=== PATIENT | female | born 1980 | race Two or more races ===

== ENCOUNTER 2024-03-03 08:28 | Day surgery (SDC) | payer BC ==
[2024-02-29 14:57] LABS: BASOPHILS % (AUTO) 0.7 % (0-1); EOSINOPHILS % (AUTO) 0.5 % (0-6); HEMATOCRIT 35.7 % (35.0-45.0); HEMOGLOBIN 11.5 g/dl (12.0-16.0); LYMPHOCYTES # (AUTO) 1.3 X10'3 (1.1-4.8); LYMPHOCYTES % (AUTO) 33.4 % (21-51); MEAN CORPUSCULAR HGB CONC 32.3 g/dL (33.0-36.5); MEAN CORPUSCULAR VOLUME 83.5 FL (78-98); MEAN PLATELET VOLUME 8.4 FL (7.4-10.4); MONOCYTES # (AUTO) 0.3 X10'3 (0-0.9); MONOCYTES % (AUTO) 8.2 % (2-12); NEUTROPHILS # (AUTO) 2.3 X10'3 (1.8-7.7); NEUTROPHILS % (AUTO) 57.2 % (42-75); PLATELET COUNT 235 X10'3 (140-440); RED BLOOD COUNT 4.27 X10'6 (4.20-5.60); RED CELL DISTRIBUTION WIDTH 17.6 % (11.5-14.5)
[2024-02-29 15:14] LABS: HCG SERUM QL NEGATIVE
[2024-02-29 15:27] LABS: ALANINE AMINOTRANSFERASE 22 U/L (12-78); ALBUMIN 3.7 G/DL (3.4-5.0); ASPARTATE AMINO TRANSFERASE 21 U/L (10-37); BILIRUBIN,TOTAL 0.5 MG/DL (0.1-1.0); CALCIUM 8.5 MG/DL (8.5-10.1); TOTAL CARBON DIOXIDE 26.8 MMOL/L (24-32); TOTAL PROTEIN 7.3 G/DL (6.4-8.2)
[2024-02-29 15:33] LABS: ALKALINE PHOSPHATASE 81 IU/L (46-116); ANION GAP 9 (8-16); BLOOD UREA NITROGEN 15 MG/DL (7-18); BUN/CREATININE RATIO 24.6 (10.0-20.0); CHLORIDE 103 MMOL/L (99-107); CREATININE 0.61 MG/DL (0.40-0.90); GLUCOSE 94 MG/DL (70-104); POTASSIUM 3.8 MMOL/L (3.5-5.1); SODIUM 139 MMOL/L (135-145); eGFR > 90 ML/MIN
[2024-03-03] VITALS (11 sets, daily range): BP systolic 96–109; BP diastolic 56–67; PULSE 51–77; RESP 10–16; TEMP 98.3; O2SAT 96–100
[~2024-03-03] VITALS: Ht 149.9 cm; Wt 48.4 kg
[2024-03-03] MEDS: ceFAZolin 2gm in dextrose, iso 50 ML IV ONE (05:30)
[2024-03-03] MEDS: famotidine 20mg tablet PO ONE (08:58)
[2024-03-03] MEDS: ringers solution, lacted 1,000 ML IV SCH (08:58)
[2024-03-03] MEDS ORDERED: LIDOcaine 1% (10mg/ml)w/preservative inj. 20ml MDV ONE (10:35)
[2024-03-03] MEDS ORDERED: BUPIVAcaine/PF 2.5mg/ml (0.25%) 10ml vial ONE ×2 (10:36→10:37)
[2024-03-03] MEDS ORDERED: fentaNYL/PF 50MCG/1 ML 2ML syringe ONE (10:56)
[2024-03-03] MEDS ORDERED: sevoflurane 250ml liquid IH ONE (10:56)
[2024-03-03] MEDS ORDERED: propofol inj 20 ML IV ONE (11:13)
[2024-03-03] MEDS ORDERED: midazolam 1 mg/ML 2ml injection ONE (11:13)
[2024-03-03] MEDS ORDERED: ondansetron/PF 4mg/2ml inj ONE (11:13)
[2024-03-03] MEDS ORDERED: dexamethasone sod phosphate 4mg/ml inj. ONE (11:13)
[2024-03-03] MEDS ORDERED: LIDOcaine 2% (20mg/ml) 5ml vial ONE (11:13)
[2024-03-03] MEDS: BUPIVAcaine/PF 2.5mg/ml (0.25%) 10ml vial IJ ONE (11:42)
[2024-03-03] MEDS ORDERED: meperidine/PF 25mg/ml syringe IV PRN ×2 (12:25)
[2024-03-03] MEDS ORDERED: hydrALAZINE 20mg/ml inj. IV PRN (12:25)
[2024-03-03] MEDS ORDERED: proCHLORperazine 10 MG/2 ml inj IV PRN (12:25)
[2024-03-03] MEDS ORDERED: ondansetron/PF 4mg/2ml inj IV PRN (12:25)
[2024-03-03] MEDS ORDERED: labetalol 20mg/4ml (5mg/ml) syringe IV PRN (12:25)
[2024-03-03] MEDS ORDERED: morphine 4 MG/ML inj SYRINge IV PRN (12:25)
[2024-03-03] MEDS ORDERED: morphine 2 MG/ML inj. syringe IV PRN (12:25)
[2024-03-03] MEDS ORDERED: ringers solution, lacted 1,000 ML IV SCH (12:25)
[2024-03-03] MEDS: acetaminophen 1,000mg/100ml IV 100 ML IV ONE (13:09)
[2024-03-03] MEDS: meperidine/PF 25mg/ml syringe IV PRN (13:09)
== END 2024-03-03 14:04 | disposition home or self-care (01) ==
LOC: PAS 08:28
PROVIDERS: ATTEND Surgery
DX: R92.8 Other abnormal and inconclusive findings on diagnostic imaging of breast (principal); R92.2 Inconclusive mammogram; N60.12 Diffuse cystic mastopathy of left breast; Z79.899 Other long term (current) drug therapy; Z98.890 Other specified postprocedural states; N60.11 Diffuse cystic mastopathy of right breast
CPT/HCPCS: 19120; 36415; 80053; 82948; 84703; 85025; J0131; J0690; J1100; J2003; J2175; J2250; J2405; J2704; J3010; J3490; J7030; J7120; Z7506; Z7508; Z7512; A4215; A4618; A6449; A7000